=== PATIENT | female | born 1995 | race Caucasian/White ===

== ENCOUNTER 2021-02-11 05:25 | Emergency (ER) | payer BC ==
[~2021-02-11] VITALS: Ht 162.5 cm; Wt 99.8 kg
[2021-02-11 06:50] LABS: BASO % 0.2 % (0.0-1.0); EOS # 0.1 10*3/uL (0.0-0.4); HEMATOCRIT 38.7 % (37.0-47.0); LYMPH % 17.6 % (27.0-41.0); MEAN CELL VOLUME 84.9 fl (81.0-99.0); MEAN CORPUSCULAR HGB 26.5 pg (27.0-31.0); MEAN CORPUSCULAR HGB CONC 31.3 g/dl (33.0-37.0); MONO # 0.5 10*3/uL (0.1-1.0); NEUT # 8.8 10*3/uL (2.3-7.9); NEUT % 76.9 % (47.0-73.0); PLATELET COUNT AUTOMATED 316 10*3/uL (130-400); RED BLOOD COUNT 4.56 10*6/uL (4.10-5.10); RED CELL DISTRI WIDTH 13.4 % (0-14.5); WHITE BLOOD COUNT 11.4 10*3/uL (4.8-10.8)
[2021-02-11 07:05] LABS: ALBUMIN 3.5 gm/dl (3.1-4.5); ALKALINE PHOSPHATASE 59 U/L (45-117); BUN 15 mg/dl (7-24); CHLORIDE 109 mmol/L (98-107); CREATININE 0.74 mg/dL (0.55-1.02); LIPASE 69 U/L (73-393); POTASSIUM 3.9 mmol/L (3.5-5.1); SGOT/AST 10 IU/L (3-35); SGPT/ALT 10 U/L (12-78); SODIUM 141 mmol/L (136-145); TOTAL PROTEIN 7.2 gm/dL (6.4-8.2)
== END 2021-02-11 09:51 | disposition home or self-care (01) ==
LOC: ED 05:25
PROVIDERS: Emergency Medicine
DX: N94.6 Dysmenorrhea, unspecified (principal); Z88.5 Allergy status to narcotic agent

== ENCOUNTER → 2021-02-27 | Outpatient (CLI) | payer BC | END | disposition home or self-care (01) | LOC: US 15:30 | PROVIDERS: ATTEND Nurse Practitioner Women's Health | DX: R10.2 Pelvic and perineal pain (principal) ==

== ENCOUNTER 2021-05-15 03:41 | Emergency (ER) | payer BC ==
[~2021-05-15] VITALS: Ht 167.6 cm; Wt 133.8 kg
[2021-05-15] MEDS ORDERED: Ipratropium Brom3 ML INH (04:15)
[2021-05-15] MEDS ORDERED: NEBULIZER NEB (04:15)
[2021-05-15] MEDS ORDERED: PREDNISONE20 M1 PO (04:16)
== END 2021-05-15 04:50 | disposition home or self-care (01) ==
LOC: ED 03:41
DX: J45.901 Unspecified asthma with (acute) exacerbation (principal); Z88.5 Allergy status to narcotic agent